=== PATIENT | female | born 1955 | race Caucasian/White ===

== ENCOUNTER 2017-02-24 20:42 | Emergency (ER) | payer OTHER ==
[~2017-02-24] VITALS: Ht 170.2 cm; Wt 74.1 kg
[~2017-02-24 20:42] MED LIST: HYDR12.54 PO; METO25TA6 PO
[2017-02-24 21:08] LABS: BASOPHILS # (AUTO) 0.04 K/uL (0.00-0.20); BASOPHILS % (AUTO) 0.5 % (0.0-2.0); EOSINOPHILS # (AUTO) 0.14 K/uL (0.00-0.70); EOSINOPHILS % (AUTO) 1.75 % (1.0-6.0); HEMATOCRIT 48.3 % (36-46); HEMOGLOBIN 16.2 g/dL (12.0-16.0); LYMPHOCYTES # (AUTO) 2.2 K/uL (1.0-4.8); LYMPHOCYTES % (AUTO) 28.6 % (22.0-44.0); MEAN CORPUSCULAR HEMOGLOBIN 31.8 pg (26.0-34.0); MEAN CORPUSCULAR HGB CONC 33.5 G/dL (31.0-37.0); MEAN CORPUSCULAR VOLUME 95 fL (80-100); MONOCYTES # (AUTO) 0.6 K/uL (0.1-1.0); MONOCYTES % (AUTO) 7.4 % (2.0-9.0); NEUTROPHILS # (AUTO) 4.8 K/uL (1.8-7.7); NEUTROPHILS % (AUTO) 61.7 % (40.0-70.0); PLATELET COUNT (AUTO) 358 K/uL (150-450); RED BLOOD CELL COUNT(AUTO) 5.09 MIL/uL (4.00-5.20)
[2017-02-24 21:21] LABS: CREATININE 1.03 mg/dL (0.60-1.30); POTASSIUM 3.5 mmol/L (3.5-5.1)
[2017-02-24 21:22] LABS: CALCIUM, TOTAL 9.6 mg/dL (8.8-10.5)
[2017-02-24 21:29] LABS: ALBUMIN 3.9 g/dL (3.4-5.0); BILIRUBIN,TOTAL 0.3 mg/dL (0.1-1.0); TOTAL PROTEIN, SERUM 8.3 g/dL (6.4-8.2)
[2017-02-24 21:36] LABS: APPEARANCE,URINE CLEAR (CLEAR); BILIRUBIN,URINE NEGATIVE (NEGATIVE); GLUCOSE, URINE (UA) NEGATIVE (NEGATIVE); KETONES,URINE NEGATIVE (NEGATIVE); LEUKOCYTE ESTERASE ,URINE NEGATIVE (NEGATIVE); NITRATE,URINE NEGATIVE (NEGATIVE); OCCULT BLOOD,URINE NEGATIVE (NEGATIVE); PROTEIN,URINE NEGATIVE (NEGATIVE); UROBILINOGEN,URINE 0.2 mg/dL (<=1.0)
[2017-02-24 21:41] LABS: AMPHET/METH SCREEN,URINE NEGATIVE (NEGATIVE); BACTERIA,URINE None Seen /HPF (None Seen); BARBITURATE SCREEN, URINE NEGATIVE (NEGATIVE); BENZODIAZEPINES SCREEN,URINE NEGATIVE (NEGATIVE); CANNABINOID SCREEN,URINE NEGATIVE (NEGATIVE); COCAINE SCREEN,URINE NEGATIVE (NEGATIVE); METHADONE SCREEN, URINE NEGATIVE (NEGATIVE); OPIATE SCREEN,URINE NEGATIVE (NEGATIVE); RBC,URINE None Seen /HPF (0-2); SQUAMOUS EPITHELIAL CELL,UR Few /LPF (None Seen); WBC,URINE 0-2 /HPF (0-5)
[2017-02-24 21:45] LABS: PHENCYCLIDINE SCREEN,URINE NEGATIVE (NEGATIVE)
[2017-02-24] MEDS ORDERED: SODIUM CHLORIDE 0.9% 1,000 ML IV ONE (22:30)
[2017-02-24] MEDS ORDERED: ONDANSETRON HCL 4 MG/2 ML VIAL IVP ONE (22:30)
[2017-02-24] MEDS ORDERED: ChlordiazePOXIDE HCL 25 MG CAPSULE PO ONE (23:15)
[2017-02-24] MEDS ORDERED: PANTOPRAZOLE SODIUM 40 MG DR TABLET PO ONE (23:15)
[2017-02-24 23:25] VITALS: BP 149/98
== END 2017-02-24 23:54 | disposition home or self-care (01) ==
LOC: EMS 20:43
DX: R10.13 Epigastric pain (principal); R11.2 Nausea with vomiting, unspecified; I10 Essential (primary) hypertension; F19.90 Other psychoactive substance use, unspecified, uncomplicated
CPT/HCPCS: 36415; 80053; 80307; 81001; 83690; 85025; 96361; 96374; 99284; G0480; J2405; J7030

== ENCOUNTER 2017-02-28 21:25 | Emergency (ER) | payer OTHER ==
[~2017-02-28] VITALS: Ht 170.2 cm; Wt 74.1 kg
[2017-02-28] MEDS ORDERED: METO50 PO (21:37)
[2017-02-28] MEDS ORDERED: LIB25 PO (21:37)
[2017-02-28] MEDS ORDERED: PANT40TA25 PO (21:37)
[2017-02-28 22:27] LABS: BASOPHILS # (AUTO) 0.04 K/uL (0.00-0.20); BASOPHILS % (AUTO) 0.6 % (0.0-2.0); EOSINOPHILS # (AUTO) 0.23 K/uL (0.00-0.70); EOSINOPHILS % (AUTO) 3.63 % (1.0-6.0); HEMATOCRIT 38.7 % (36-46); HEMOGLOBIN 13.2 g/dL (12.0-16.0); LYMPHOCYTES # (AUTO) 1.4 K/uL (1.0-4.8); LYMPHOCYTES % (AUTO) 21.9 % (22.0-44.0); MEAN CORPUSCULAR HEMOGLOBIN 32.5 pg (26.0-34.0); MEAN CORPUSCULAR HGB CONC 34.2 G/dL (31.0-37.0); MEAN CORPUSCULAR VOLUME 95 fL (80-100); MONOCYTES # (AUTO) 0.5 K/uL (0.1-1.0); MONOCYTES % (AUTO) 7.3 % (2.0-9.0); NEUTROPHILS # (AUTO) 4.2 K/uL (1.8-7.7); NEUTROPHILS % (AUTO) 66.6 % (40.0-70.0); PLATELET COUNT (AUTO) 254 K/uL (150-450); RED BLOOD CELL COUNT(AUTO) 4.07 MIL/uL (4.00-5.20); RED CELL DISTRIBUTION WIDTH 15.4 % (11.5-14.5)
[2017-02-28 22:34] LABS: ANION GAP 7 mmol/L (8-16); CALCIUM, TOTAL 8.3 mg/dL (8.8-10.5); CARBON DIOXIDE 28 mmol/L (22-29); CHLORIDE 109 mmol/L (98-107); CREATININE 1.17 mg/dL (0.60-1.30); GLOMERULAR FILTR. RATE CALC 47 mL/min (>60); GLUCOSE,RANDOM 112 mg/dL (70-110); POTASSIUM 3.9 mmol/L (3.5-5.1); SODIUM SERUM 144 mmol/L (136-145); UREA NITROGEN, BLOOD 19 mg/dL (7-18)
[2017-02-28 22:40] LABS: ALANINE AMINOTRANSFERASE 29 U/L (12-78); ALBUMIN 3.2 g/dL (3.4-5.0); ALKALINE PHOSPHATASE 60 U/L (46-116); ASPARTATE AMINOTRANSFERASE 20 U/L (15-37); BILIRUBIN,TOTAL 0.2 mg/dL (0.1-1.0); TOTAL PROTEIN, SERUM 6.7 g/dL (6.4-8.2)
[2017-02-28] MEDS ORDERED: LORazepam 2 MG TABLET PO ONE (22:45)
[2017-02-28] MEDS ORDERED: HALOPERIDOL 5 MG TABLET PO ONE (22:45)
[2017-02-28] MEDS ORDERED: DiphenhydrAMINE HCL 25 MG CAPSULE PO ONE (22:45)
[2017-02-28 22:56] VITALS: BP 150/80
[2017-02-28 23:16] LABS: AMPHET/METH SCREEN,URINE NEGATIVE (NEGATIVE); BARBITURATE SCREEN, URINE NEGATIVE (NEGATIVE); BENZODIAZEPINES SCREEN,URINE POSITIVE (NEGATIVE); CANNABINOID SCREEN,URINE NEGATIVE (NEGATIVE); COCAINE SCREEN,URINE NEGATIVE (NEGATIVE); METHADONE SCREEN, URINE NEGATIVE (NEGATIVE); OPIATE SCREEN,URINE NEGATIVE (NEGATIVE); PHENCYCLIDINE SCREEN,URINE NEGATIVE (NEGATIVE)
[2017-03-01 04:24] LABS: BILIRUBIN,URINE NEGATIVE (NEGATIVE); GLUCOSE, URINE (UA) NEGATIVE (NEGATIVE); KETONES,URINE NEGATIVE (NEGATIVE); LEUKOCYTE ESTERASE ,URINE NEGATIVE (NEGATIVE); NITRATE,URINE NEGATIVE (NEGATIVE); OCCULT BLOOD,URINE NEGATIVE (NEGATIVE); PROTEIN,URINE NEGATIVE (NEGATIVE); UROBILINOGEN,URINE 0.2 mg/dL (<=1.0)
[2017-03-01 04:26] LABS: APPEARANCE,URINE HAZY (CLEAR)
[2017-03-01 04:36] LABS: CHOL/HDL RATIO 2.8 (3.9-5.7); CHOLESTEROL 174 mg/dL (131-200); HDL CHOLESTEROL 62 mg/dL (40-60); LDL CHOL (CALC.) 85 mg/dL (0-130); THYROID STIMULATING HORMONE 1.04 uIU/mL (0.36-3.74); TRIGLYCERIDES 134 mg/dL (15-150)
== END 2017-02-28 23:47 | disposition home or self-care (01) ==
LOC: EMS 21:27
DX: F41.9 Anxiety disorder, unspecified (principal); F32.9 Major depressive disorder, single episode, unspecified; K21.9 Gastro-esophageal reflux disease without esophagitis; I10 Essential (primary) hypertension; F19.90 Other psychoactive substance use, unspecified, uncomplicated
CPT/HCPCS: 36415; 80053; 80061; 80307; 81003; 84443; 85025; 99284; G0480

== ENCOUNTER 2017-03-01 01:57 | Inpatient (IN) | payer MEDICAID, OTHER ==
[2017-03-01] VITALS (9 sets, daily range): BP systolic 130–158; BP diastolic 76–97
[~2017-03-01] VITALS: Ht 154.9 cm; Wt 70.8 kg
[~2017-03-01 01:57] MED LIST changes: +LIB25 PO; -METO25TA6 PO; +METO50 PO; +PANT40TA25 PO
[2017-03-01] MEDS ORDERED: OLANZapine 5 MG RAPDIS TABLET PO PRN (04:00)
[2017-03-01] MEDS ORDERED: GuaiFENesin/D-METHORPHAN [SUGAR-FREE] 200-20MG/10 ML SYRUP UDCUP PO PRN (04:00)
[2017-03-01] MEDS ORDERED: LOPERAMIDE HCL 2 MG CAPSULE PO PRN (04:00)
[2017-03-01] MEDS ORDERED: ZOLPIDEM TARTRATE 10 MG TABLET PO PRN (04:00)
[2017-03-01] MEDS ORDERED: LORazepam 2 MG TABLET PO PRN (04:00)
[2017-03-01] MEDS ORDERED: CYANOCOBALAMIN 1,000 MCG/ML VIAL IM ONE (04:00)
[2017-03-01] MEDS ORDERED: HydrOXYzine PAMOATE 50 MG CAPSULE PO PRN (04:00)
[2017-03-01] MEDS ORDERED: INFLUENZA VIRUS VACCINE QVS 2017-18 (3YR+)/PF 60 MCG/0.5 ML SYRINGE IM ONE (06:00)
[2017-03-01] MEDS: THIAMINE HCL 100 MG TABLET PO SCH ×2 (09:24→16:53)
[2017-03-01] MEDS: FOLIC ACID 1 MG TABLET PO SCH (09:24)
[2017-03-01] MEDS: MULTIVITAMINS WITH MINERALS, THERAPEUTIC TABLET PO SCH (09:25)
[2017-03-01] MEDS: METOPROLOL TARTRATE 50 MG TABLET PO SCH (20:43)
[2017-03-01] MEDS: HYDROCHLOROTHIAZIDE 25 MG TABLET PO SCH (20:44)
[2017-03-02 01:00] VITALS: BP 142/76
[2017-03-02 05:00] VITALS: BP 139/69
[2017-03-02] MEDS ORDERED: LORazepam 2 MG TABLET PO PRN (07:00)
[2017-03-02 09:00] VITALS: BP 140/80
[2017-03-02] MEDS ORDERED: LORazepam 2 MG TABLET PO SCH (09:00)
[2017-03-02] MEDS: MULTIVITAMINS WITH MINERALS, THERAPEUTIC TABLET PO SCH (09:02)
[2017-03-02] MEDS: THIAMINE HCL 100 MG TABLET PO SCH ×2 (09:02→16:32)
[2017-03-02] MEDS: PANTOPRAZOLE SODIUM 40 MG DR TABLET PO SCH ×2 (09:02→16:32)
[2017-03-02] MEDS: HYDROCHLOROTHIAZIDE 25 MG TABLET PO SCH (09:02)
[2017-03-02] MEDS: METOPROLOL TARTRATE 50 MG TABLET PO SCH (09:03)
[2017-03-02] MEDS: FOLIC ACID 1 MG TABLET PO SCH (09:03)
[2017-03-02] MEDS ORDERED: DIAZEPAM 10 MG TABLET PO PRN (10:15)
[2017-03-02] MEDS ORDERED: HYDR25TA PO (13:06)
[2017-03-02] MEDS ORDERED: ACETAMINOPHEN 325 MG TABLET PO PRN (17:30)
[2017-03-02] MEDS ORDERED: IBUPROFEN 600 MG TABLET PO PRN (17:30)
[2017-03-02] MEDS ORDERED: CloNIDine HCL 0.1 MG TABLET PO PRN (18:00)
[2017-03-02 19:48] VITALS: BP 141/75
[2017-03-03 03:19] VITALS: BP 142/86
[2017-03-03] MEDS ORDERED: DIAZEPAM 10 MG TABLET PO PRN (07:00)
[2017-03-03 08:00] VITALS: BP 138/94
[2017-03-03 08:33] LABS: ALBUMIN 3.6 g/dL (3.4-5.0); BILIRUBIN,TOTAL 0.5 mg/dL (0.1-1.0); CALCIUM, TOTAL 9.2 mg/dL (8.8-10.5); CREATININE 0.98 mg/dL (0.60-1.30); TOTAL PROTEIN, SERUM 7.4 g/dL (6.4-8.2)
[2017-03-03] MEDS ORDERED: NALTREXONE HCL 50 MG TABLET PO SCH (09:00)
[2017-03-03] MEDS ORDERED: PARoxetine HCL 10 MG TABLET PO SCH (09:00)
[2017-03-03] MEDS ORDERED: PARoxetine HCL 20 MG TABLET PO SCH (09:00)
[2017-03-03] MEDS: FOLIC ACID 1 MG TABLET PO SCH (09:30)
[2017-03-03] MEDS: PANTOPRAZOLE SODIUM 40 MG DR TABLET PO SCH (09:30)
[2017-03-03] MEDS: THIAMINE HCL 100 MG TABLET PO SCH (09:30)
[2017-03-03] MEDS: METOPROLOL TARTRATE 50 MG TABLET PO SCH (09:30)
[2017-03-03] MEDS: MULTIVITAMINS WITH MINERALS, THERAPEUTIC TABLET PO SCH (09:30)
[2017-03-03] MEDS: HYDROCHLOROTHIAZIDE 25 MG TABLET PO SCH (09:31)
[2017-03-03] MEDS: DIAZEPAM 10 MG TABLET PO SCH ×2 (09:31→12:27)
[2017-03-03 11:34] VITALS: BP 138/94
[2017-03-03 11:37] VITALS: BP 138/94
[2017-03-03 12:00] VITALS: BP 138/83
[2017-03-03] MEDS ORDERED: PARO10TA89 PO (13:41)
[2017-03-04] MEDS ORDERED: LORazepam 1 MG TABLET PO PRN (07:00)
[2017-03-04] MEDS ORDERED: LORazepam 1 MG TABLET PO SCH (09:00)
[2017-03-05] MEDS ORDERED: LORazepam 1 MG TABLET PO PRN (07:00)
[2017-03-05] MEDS ORDERED: DIAZEPAM 5 MG TABLET PO PRN (07:00)
[2017-03-05] MEDS ORDERED: DIAZEPAM 5 MG TABLET PO SCH (09:00)
[2017-03-06] MEDS ORDERED: DIAZEPAM 5 MG TABLET PO PRN (07:00)
== END 2017-03-03 14:00 | disposition home or self-care (01) | DRG 754 ==
LOC: EMS 01:58 → 3EI 04:33
PROVIDERS: ADMIT Psychiatry & Neurology Psychiatry; ATTEND Psychiatry & Neurology Psychiatry
DX: F32.9 Major depressive disorder, single episode, unspecified (principal); R45.851 Suicidal ideations; I10 Essential (primary) hypertension; F10.20 Alcohol dependence, uncomplicated; K21.9 Gastro-esophageal reflux disease without esophagitis; F15.90 Other stimulant use, unspecified, uncomplicated; R06.09 Other forms of dyspnea; S92.901A Unspecified fracture of right foot, initial encounter for closed fracture; W01.0XXA Fall on same level from slipping, tripping and stumbling without subsequent striking against object, initial encounter; Y93.89 Activity, other specified; Y92.89 Other specified places as the place of occurrence of the external cause; Y99.8 Other external cause status; Z28.21 Immunization not carried out because of patient refusal
CPT/HCPCS: 93306; 99285; J3420

== ENCOUNTER 2017-05-12 23:06 | Inpatient (IN) | payer MEDICAID, OTHER ==
[~2017-05-12] VITALS: Ht 170.2 cm; Wt 76.3 kg
[~2017-05-12 23:06] MED LIST changes: -HYDR12.54 PO; +HYDR25TA PO; -LIB25 PO; +PARO10TA89 PO
[2017-05-12 23:40] LABS: BASOPHILS % (AUTO) 0.7 % (0.0-2.0); EOSINOPHILS % (AUTO) 2.4 % (1.0-6.0); HEMOGLOBIN 13.2 g/dL (12.0-16.0); LYMPHOCYTES # (AUTO) 0.9 K/uL (1.0-4.8); LYMPHOCYTES % (AUTO) 14.6 % (22.0-44.0); MEAN CORPUSCULAR HEMOGLOBIN 32.4 pg (26.0-34.0); MEAN CORPUSCULAR HGB CONC 35.8 G/dL (31.0-37.0); MEAN CORPUSCULAR VOLUME 91 fL (80-100); MONOCYTES # (AUTO) 0.7 K/uL (0.1-1.0); MONOCYTES % (AUTO) 10.9 % (2.0-9.0); NEUTROPHILS # (AUTO) 4.4 K/uL (1.8-7.7); NEUTROPHILS % (AUTO) 71.4 % (40.0-70.0); PLATELET COUNT (AUTO) 246 K/uL (150-450); RED BLOOD CELL COUNT(AUTO) 4.09 MIL/uL (4.00-5.20); RED CELL DISTRIBUTION WIDTH 13.5 % (11.5-14.5)
[2017-05-12 23:51] LABS: ANION GAP 6 mmol/L (8-16); CALCIUM, TOTAL 8.6 mg/dL (8.8-10.5); CARBON DIOXIDE 32 mmol/L (22-29); CHLORIDE 104 mmol/L (98-107); CREATININE 0.96 mg/dL (0.60-1.30); GLOMERULAR FILTR. RATE CALC 59 mL/min (>60); GLUCOSE,RANDOM 144 mg/dL (70-110); POTASSIUM 3.3 mmol/L (3.5-5.1); SODIUM SERUM 142 mmol/L (136-145); UREA NITROGEN, BLOOD 13 mg/dL (7-18)
[2017-05-12 23:56] LABS: PROTHROMBIN TIME 10.1 SEC (9.4-11.6)
[2017-05-13 00:15] LABS: ALANINE AMINOTRANSFERASE 23 U/L (12-78); ALKALINE PHOSPHATASE 65 U/L (46-116); ASPARTATE AMINOTRANSFERASE 28 U/L (15-37); BILIRUBIN,TOTAL 0.2 mg/dL (0.1-1.0); CREATINE KINASE MB 3.6 ng/mL (0-5); CREATINE KINASE, TOTAL 117 U/L (26-192); TOTAL PROTEIN, SERUM 6.4 g/dL (6.4-8.2)
[2017-05-13 00:25] LABS: B-TYPE NATRIURETIC PEPTIDE 156 pg/mL (0-100)
[2017-05-13 02:11] LABS: APPEARANCE,URINE CLEAR (CLEAR); BILIRUBIN,URINE NEGATIVE (NEGATIVE); GLUCOSE, URINE (UA) NEGATIVE (NEGATIVE); KETONES,URINE NEGATIVE (NEGATIVE); LEUKOCYTE ESTERASE ,URINE TRACE (NEGATIVE); NITRATE,URINE NEGATIVE (NEGATIVE); OCCULT BLOOD,URINE NEGATIVE (NEGATIVE); PH,URINE 8.5 (5.0-8.0); PROTEIN,URINE NEGATIVE (NEGATIVE)
[2017-05-13 02:15] LABS: AMPHET/METH SCREEN,URINE NEGATIVE (NEGATIVE); BARBITURATE SCREEN, URINE NEGATIVE (NEGATIVE); BENZODIAZEPINES SCREEN,URINE NEGATIVE (NEGATIVE); CANNABINOID SCREEN,URINE NEGATIVE (NEGATIVE); COCAINE SCREEN,URINE NEGATIVE (NEGATIVE); METHADONE SCREEN, URINE NEGATIVE (NEGATIVE); OPIATE SCREEN,URINE NEGATIVE (NEGATIVE)
[2017-05-13 02:17] LABS: PHENCYCLIDINE SCREEN,URINE NEGATIVE (NEGATIVE)
[2017-05-13] MEDS ORDERED: PB/HYOSCY/ATR/SCOP/LIDO/MAALOX 55 ML BOTTLE PO ONE (02:30)
[2017-05-13] MEDS ORDERED: ASPIRIN 81 MG CHEWABLE TABLET PO ONE (02:30)
[2017-05-13] MEDS ORDERED: NITROGLYCERIN 2% (1 GM=INCH) PACKET TP ONE (02:30)
[2017-05-13 02:37] LABS: BACTERIA,URINE Rare /HPF (None Seen); RBC,URINE 0-2 /HPF (0-2); SQUAMOUS EPITHELIAL CELL,UR Rare /LPF (None Seen)
[2017-05-13] MEDS ORDERED: ONDANSETRON HCL 4 MG/2 ML VIAL IVP PRN (04:00)
[2017-05-13] MEDS ORDERED: ACETAMINOPHEN 325 MG TABLET PO PRN (04:00)
[2017-05-13] MEDS ORDERED: MORPHINE SULFATE 4 MG/ML SYRINGE IVP ONE (04:00)
[2017-05-13] MEDS ORDERED: 0.9% SODIUM CHLORIDE 10 ML SYRINGE IVP PRN (04:00)
[2017-05-13 08:31] VITALS: BP 124/84
[2017-05-13] MEDS ORDERED: POTASSIUM CHLORIDE 20 MEQ ER TABLET PO PRN ×2 (09:00→13:30)
[2017-05-13] MEDS ORDERED: POTASSIUM CHL 10 MEQ/WATER 50 ML IV PRN ×2 (09:00→13:30)
[2017-05-13] MEDS ORDERED: PNEUMOCOCCAL VACCINE POLYVALENT 0.5 ML VIAL [PPSV23] IM ONE (11:00)
[2017-05-13 11:39] VITALS: BP 106/66
[2017-05-13] MEDS ORDERED: ATORVASTATIN CALCIUM 20 MG TABLET PO SCH (13:30)
[2017-05-13 15:33] VITALS: BP 122/78
[2017-05-13 20:24] VITALS: BP_SYST 127; BP_SYST 155; BP_DIAS 78; BP_DIAS 83
[2017-05-13] MEDS: ZOLPIDEM TARTRATE 5 MG TABLET PO PRN (21:55)
[2017-05-13] MEDS ORDERED: SODIUM CHLORIDE 0.9% 1,000 ML IV ONE (22:00)
[2017-05-14] VITALS (9 sets, daily range): BP systolic 125–163; BP diastolic 72–99
[2017-05-14] MEDS: MORPHINE SULFATE 2 MG/ML SYRINGE IVP PRN ×2 (00:08→06:47)
[2017-05-14] MEDS: ZOLPIDEM TARTRATE 5 MG TABLET PO PRN (03:30)
[2017-05-14] MEDS ORDERED: LIDOCAINE HCL/PF 1% 30 ML VIAL ONE (08:43)
[2017-05-14] MEDS ORDERED: HEPARIN SODIUM 1000 UNITS/NS 1,000 ML ONE (08:43)
[2017-05-14] MEDS ORDERED: IOHEXOL 300 MG/ML 150 ML VIAL ONE (08:43)
[2017-05-14] MEDS ORDERED: SODIUM BICARBONATE 50 MEQ/50 ML VIAL ONE (08:43)
[2017-05-14] MEDS ORDERED: HEPARIN SODIUM,PORCINE 1,000 UNITS/ML 10 ML VIAL ONE (08:44)
[2017-05-14] MEDS ORDERED: ASPIRIN 81 MG CHEWABLE TABLET PO SCH (09:00)
[2017-05-14] MEDS ORDERED: MIDAZOLAM HCL 2 MG/2 ML VIAL ONE (09:40)
[2017-05-14] MEDS ORDERED: FentaNYL CITRATE-PF 100 MCG/2 ML VIAL ONE (09:40)
[2017-05-14] MEDS ORDERED: HEPARIN SODIUM 2,000 UNITS in HEPARIN SODIUM 1000 UNITS/NS 1,000 ML IARTER ONE (09:53)
[2017-05-14] MEDS ORDERED: IOHEXOL 300 MG/ML 150 ML VIAL IARTER ONE (10:00)
[2017-05-14] MEDS ORDERED: LIDOCAINE 1% 30 ML/SOD BICARB 8.4% 4 ML SQ ONE (10:00)
[2017-05-14] MEDS ORDERED: IOHEXOL 300 MG/ML 50 ML VIAL ONE (10:05)
[2017-05-14] MEDS ORDERED: ONDANSETRON HCL 4 MG/2 ML VIAL ONE (10:13)
[2017-05-14] MEDS ORDERED: FentaNYL CITRATE-PF 100 MCG/2 ML VIAL IVP ONE (10:15)
[2017-05-14] MEDS ORDERED: ONDANSETRON HCL 4 MG/2 ML VIAL IVP ONE ×2 (10:15→10:30)
[2017-05-14] MEDS ORDERED: MIDAZOLAM HCL 2 MG/2 ML VIAL IVP ONE ×2 (10:15)
[2017-05-14] MEDS ORDERED: IOHEXOL 240 MG/ML 50 ML VIAL IARTER ONE (10:15)
[2017-05-14] MEDS ORDERED: PARoxetine HCL 10 MG TABLET PO SCH (11:30)
[2017-05-14] MEDS: METOPROLOL TARTRATE 25 MG TABLET PO SCH ×2 (11:41→20:50)
[2017-05-14] MEDS: ACETAMINOPHEN 325 MG TABLET PO PRN ×2 (12:45→20:50)
[2017-05-14] MEDS ORDERED: ZOLPIDEM TARTRATE 10 MG TABLET PO PRN (14:00)
[2017-05-15] MEDS ORDERED: ATORVASTATIN CALCIUM 40 MG TABLET PO SCH (09:00)
[2017-05-15] MEDS ORDERED: PARoxetine HCL 10 MG TABLET PO SCH (09:00)
== END 2017-05-14 21:35 | disposition short-term general hospital (02) | DRG 190 ==
LOC: EMS 23:08 → 5S 05-13 04:07
PROVIDERS: ADMIT Internal Medicine; ATTEND Internal Medicine
PROC: 4A023N7 Measurement of Cardiac Sampling and Pressure, Left Heart, Percutaneous Approach (ICD-10-PCS; principal; 2017-05-14)
PROC: B2111ZZ Fluoroscopy of Multiple Coronary Arteries using Low Osmolar Contrast (ICD-10-PCS; 2017-05-14)
PROC: B2151ZZ Fluoroscopy of Left Heart using Low Osmolar Contrast (ICD-10-PCS; 2017-05-14)
DX: I21.4 Non-ST elevation (NSTEMI) myocardial infarction (principal); F33.2 Major depressive disorder, recurrent severe without psychotic features; I25.119 Atherosclerotic heart disease of native coronary artery with unspecified angina pectoris; I10 Essential (primary) hypertension; F10.20 Alcohol dependence, uncomplicated; K21.9 Gastro-esophageal reflux disease without esophagitis; F15.10 Other stimulant abuse, uncomplicated; F41.9 Anxiety disorder, unspecified; Z79.899 Other long term (current) drug therapy; Z79.82 Long term (current) use of aspirin
CPT/HCPCS: 84132; 93005; 93306; 96374; 99285; J1644; J2250; J2270; J2405; J3010; J3490; J7030; Q9967

== ENCOUNTER 2017-07-18 18:46 | Emergency (ER) | payer OTHER ==
[~2017-07-18] VITALS: Ht 160 cm; Wt 67.7 kg
[2017-07-18 19:56] LABS: EOSINOPHILS % (AUTO) 2.6 % (1.0-6.0); HEMATOCRIT 36.8 % (36-46); HEMOGLOBIN 12.5 g/dL (12.0-16.0); LYMPHOCYTES # (AUTO) 1.7 K/uL (1.0-4.8); LYMPHOCYTES % (AUTO) 19.1 % (22.0-44.0); MEAN CORPUSCULAR HEMOGLOBIN 28.6 pg (26.0-34.0); MEAN CORPUSCULAR HGB CONC 33.9 G/dL (31.0-37.0); MEAN CORPUSCULAR VOLUME 84 fL (80-100); MONOCYTES # (AUTO) 0.9 K/uL (0.1-1.0); MONOCYTES % (AUTO) 9.9 % (2.0-9.0); NEUTROPHILS # (AUTO) 6.1 K/uL (1.8-7.7); NEUTROPHILS % (AUTO) 67.4 % (40.0-70.0); PLATELET COUNT (AUTO) 350 K/uL (150-450); RED BLOOD CELL COUNT(AUTO) 4.36 MIL/uL (4.00-5.20); RED CELL DISTRIBUTION WIDTH 14.7 % (11.5-14.5)
[2017-07-18 20:42] LABS: CALCIUM, TOTAL 8.8 mg/dL (8.8-10.5); CREATININE 0.97 mg/dL (0.60-1.30); POTASSIUM 3.7 mmol/L (3.5-5.1)
[2017-07-18 20:49] LABS: ALBUMIN 3.6 g/dL (3.4-5.0); BILIRUBIN,TOTAL 0.4 mg/dL (0.1-1.0); TOTAL PROTEIN, SERUM 8.3 g/dL (6.4-8.2)
[2017-07-18 20:53] VITALS: BP 138/63
== END 2017-07-18 21:15 | disposition home or self-care (01) ==
LOC: EMS 18:47
DX: L03.313 Cellulitis of chest wall (principal); I10 Essential (primary) hypertension; I25.10 Atherosclerotic heart disease of native coronary artery without angina pectoris; K21.9 Gastro-esophageal reflux disease without esophagitis; Z95.1 Presence of aortocoronary bypass graft
CPT/HCPCS: 93005; 99285

== ENCOUNTER 2017-11-12 22:24 | Emergency (ER) | payer OTHER ==
[~2017-11-12] VITALS: Ht 170.2 cm; Wt 69.5 kg
[~2017-11-12 22:24] MED LIST changes: +ASPI81 PO; +ATOR10TA84 PO; -HYDR25TA PO; +METO25XL PO; -METO50 PO; +MV-M1TAB2 PO
[2017-11-12] MEDS ORDERED: CEPH500 PO (22:36)
[2017-11-12] MEDS ORDERED: LORazepam 1 MG TABLET PO ONE (23:00)
[2017-11-12] MEDS ORDERED: DiphenhydrAMINE HCL 25 MG CAPSULE PO ONE (23:00)
[2017-11-12 23:11] LABS: BASOPHILS % (AUTO) 0.9 % (0.0-2.0); HEMOGLOBIN 10.9 g/dL (12.0-16.0); LYMPHOCYTES # (AUTO) 1.5 K/uL (1.0-4.8); LYMPHOCYTES % (AUTO) 19.3 % (22.0-44.0)
[2017-11-12 23:20] LABS: EOSINOPHILS % (AUTO) 2.8 % (1.0-6.0); HEMATOCRIT 33.2 % (36-46); MEAN CORPUSCULAR HEMOGLOBIN 25.4 pg (26.0-34.0); MEAN CORPUSCULAR HGB CONC 32.7 G/dL (31.0-37.0); MEAN CORPUSCULAR VOLUME 78 fL (80-100); MONOCYTES # (AUTO) 0.7 K/uL (0.1-1.0); MONOCYTES % (AUTO) 9.2 % (2.0-9.0); NEUTROPHILS # (AUTO) 5.4 K/uL (1.8-7.7); NEUTROPHILS % (AUTO) 67.8 % (40.0-70.0); PLATELET COUNT (AUTO) 403 K/uL (150-450); RED BLOOD CELL COUNT(AUTO) 4.28 MIL/uL (4.00-5.20); RED CELL DISTRIBUTION WIDTH 16.5 % (11.5-14.5)
[2017-11-12 23:22] LABS: ANION GAP 10 mmol/L (8-16); CALCIUM, TOTAL 8.9 mg/dL (8.8-10.5); CARBON DIOXIDE 26 mmol/L (22-29); CHLORIDE 105 mmol/L (98-107); CREATININE 0.89 mg/dL (0.60-1.30); GLOMERULAR FILTR. RATE CALC > 60 mL/min (>60); GLUCOSE,RANDOM 93 mg/dL (70-110); POTASSIUM 3.4 mmol/L (3.5-5.1); SODIUM SERUM 141 mmol/L (136-145); UREA NITROGEN, BLOOD 11 mg/dL (7-18)
[2017-11-12 23:29] LABS: ALANINE AMINOTRANSFERASE 23 U/L (12-78); ALBUMIN 3.2 g/dL (3.4-5.0); ALKALINE PHOSPHATASE 92 U/L (46-116); ASPARTATE AMINOTRANSFERASE 18 U/L (15-37); BILIRUBIN,TOTAL 0.3 mg/dL (0.1-1.0); TOTAL PROTEIN, SERUM 7.4 g/dL (6.4-8.2)
[2017-11-13] MEDS ORDERED: IBUPROFEN 600 MG TABLET PO ONE
[2017-11-13] MEDS ORDERED: ACETAMINOPHEN 325 MG TABLET PO ONE
[2017-11-13 00:10] LABS: AMPHET/METH SCREEN,URINE NEGATIVE (NEGATIVE); BARBITURATE SCREEN, URINE NEGATIVE (NEGATIVE); BENZODIAZEPINES SCREEN,URINE NEGATIVE (NEGATIVE); CANNABINOID SCREEN,URINE NEGATIVE (NEGATIVE); COCAINE SCREEN,URINE NEGATIVE (NEGATIVE); METHADONE SCREEN, URINE NEGATIVE (NEGATIVE); OPIATE SCREEN,URINE NEGATIVE (NEGATIVE)
[2017-11-13 00:11] LABS: PHENCYCLIDINE SCREEN,URINE NEGATIVE (NEGATIVE)
[2017-11-13 00:17] VITALS: BP 127/78
== END 2017-11-13 00:19 | disposition home or self-care (01) ==
LOC: EMS 22:25
DX: F41.9 Anxiety disorder, unspecified (principal); F10.20 Alcohol dependence, uncomplicated; F15.90 Other stimulant use, unspecified, uncomplicated; F32.9 Major depressive disorder, single episode, unspecified; K21.9 Gastro-esophageal reflux disease without esophagitis; E78.00 Pure hypercholesterolemia, unspecified; I11.9 Hypertensive heart disease without heart failure; Z95.1 Presence of aortocoronary bypass graft; Z79.82 Long term (current) use of aspirin; Z79.899 Other long term (current) drug therapy; Y90.0 Blood alcohol level of less than 20 mg/100 ml
CPT/HCPCS: 36415; 80053; 80307; 85025; 93005; 99285; G0480

== ENCOUNTER 2017-12-27 17:55 | Inpatient (IN) | payer OTHER ==
[~2017-12-27] VITALS: Ht 170.2 cm; Wt 73.4 kg
[~2017-12-27 17:55] MED LIST changes: +CEPH500 PO
[2017-12-27] MEDS ORDERED: LORA0.5T2 PO (18:05)
[2017-12-27] MEDS ORDERED: LOSA25TA16 PO (18:05)
[2017-12-27] MEDS ORDERED: POTA25TA7 PO (18:05)
[2017-12-27] MEDS ORDERED: FURO20 PO (18:05)
[2017-12-27] MEDS ORDERED: POTA8TAB7 PO (19:09)
[2017-12-27] MEDS ORDERED: DiphenhydrAMINE HCL 50 MG/ML VIAL IVP ONE (19:15)
[2017-12-27] MEDS ORDERED: PANTOPRAZOLE SODIUM 40 MG/VIAL IVP ONE (19:15)
[2017-12-27] MEDS ORDERED: ONDANSETRON HCL 4 MG/2 ML VIAL IVP ONE (19:15)
[2017-12-27 19:27] LABS: BASOPHILS % (AUTO) 0.5 % (0.0-2.0); EOSINOPHILS % (AUTO) 1.8 % (1.0-6.0); HEMATOCRIT 32.3 % (36-46); HEMOGLOBIN 10.7 g/dL (12.0-16.0); LYMPHOCYTES % (AUTO) 13.5 % (22.0-44.0); MEAN CORPUSCULAR HEMOGLOBIN 26.1 pg (26.0-34.0); MEAN CORPUSCULAR VOLUME 79 fL (80-100); MONOCYTES # (AUTO) 0.6 K/uL (0.1-1.0); MONOCYTES % (AUTO) 8.5 % (2.0-9.0); NEUTROPHILS # (AUTO) 5.6 K/uL (1.8-7.7); NEUTROPHILS % (AUTO) 75.7 % (40.0-70.0); PLATELET COUNT (AUTO) 320 K/uL (150-450); RED BLOOD CELL COUNT(AUTO) 4.09 MIL/uL (4.00-5.20); RED CELL DISTRIBUTION WIDTH 18.1 % (11.5-14.5)
[2017-12-27 19:32] LABS: ANION GAP 11 mmol/L (8-16); CALCIUM, TOTAL 9.2 mg/dL (8.8-10.5); CARBON DIOXIDE 28 mmol/L (22-29); CHLORIDE 101 mmol/L (98-107); CREATININE 0.83 mg/dL (0.60-1.30); GLOMERULAR FILTR. RATE CALC > 60 mL/min (>60); GLUCOSE,RANDOM 105 mg/dL (70-110); POTASSIUM 3.3 mmol/L (3.5-5.1); SODIUM SERUM 140 mmol/L (136-145); UREA NITROGEN, BLOOD 9 mg/dL (7-18)
[2017-12-27 19:38] LABS: ALANINE AMINOTRANSFERASE 25 U/L (12-78); ALBUMIN 3.5 g/dL (3.4-5.0); ALKALINE PHOSPHATASE 82 U/L (46-116); ASPARTATE AMINOTRANSFERASE 24 U/L (15-37); BILIRUBIN,TOTAL 0.7 mg/dL (0.1-1.0); LIPASE 175 U/L (73-393)
[2017-12-27 20:16] LABS: AMPHET/METH SCREEN,URINE NEGATIVE (NEGATIVE); BARBITURATE SCREEN, URINE NEGATIVE (NEGATIVE); BENZODIAZEPINES SCREEN,URINE POSITIVE (NEGATIVE); CANNABINOID SCREEN,URINE POSITIVE (NEGATIVE); COCAINE SCREEN,URINE NEGATIVE (NEGATIVE); METHADONE SCREEN, URINE NEGATIVE (NEGATIVE); OPIATE SCREEN,URINE POSITIVE (NEGATIVE)
[2017-12-27 20:28] LABS: PHENCYCLIDINE SCREEN,URINE NEGATIVE (NEGATIVE)
[2017-12-27] MEDS ORDERED: POTASSIUM CHLORIDE 20 MEQ ER TABLET PO ONE (20:45)
[2017-12-27] MEDS ORDERED: LORazepam 1 MG TABLET PO ONE (20:45)
[2017-12-27 21:19] LABS: CREATINE KINASE, TOTAL ONLY 95 U/L (26-192)
[2017-12-27] MEDS ORDERED: ALBUTEROL SULFATE 2.5 MG/0.5 ML NEB SOLUTION NEB PRN (22:15)
[2017-12-27] MEDS ORDERED: IPRATROPIUM BROMIDE 0.5 MG/2.5 ML NEB SOLUTION NEB PRN (22:15)
[2017-12-27] MEDS ORDERED: BISACODYL 10 MG RECTAL RECTAL SUPPOSITORY PR PRN (22:15)
[2017-12-27] MEDS ORDERED: OxyCODONE HCL/ACETAMINOPHEN 5-325 MG TABLET PO PRN (22:15)
[2017-12-27] MEDS ORDERED: MORPHINE SULFATE 4 MG/ML SYRINGE IVP PRN (22:15)
[2017-12-27] MEDS ORDERED: MAGNESIUM HYDROXIDE SUSPENSION 30 ML UDCUP PO PRN (22:15)
[2017-12-27] MEDS: ZOLPIDEM TARTRATE 5 MG TABLET PO PRN (22:35)
[2017-12-27] MEDS: ACETAMINOPHEN 325 MG TABLET PO PRN (22:35)
[2017-12-27 22:45] VITALS: BP 133/72
[2017-12-28] MEDS: LORazepam 2 MG/ML VIAL IVP PRN ×2 (01:56→17:47)
[2017-12-28 04:03] VITALS: BP 111/58
[2017-12-28] MEDS: ACETAMINOPHEN 325 MG TABLET PO PRN ×3 (06:35→21:18)
[2017-12-28 06:42] LABS: ALANINE AMINOTRANSFERASE 28 U/L (12-78); ALBUMIN 2.9 g/dL (3.4-5.0); ALKALINE PHOSPHATASE 68 U/L (46-116); ANION GAP 8 mmol/L (8-16); ASPARTATE AMINOTRANSFERASE 16 U/L (15-37); BILIRUBIN,TOTAL 0.5 mg/dL (0.1-1.0); CALCIUM, TOTAL 8.6 mg/dL (8.8-10.5); CARBON DIOXIDE 27 mmol/L (22-29); CHLORIDE 106 mmol/L (98-107); CREATININE 0.78 mg/dL (0.60-1.30); GLOMERULAR FILTR. RATE CALC > 60 mL/min (>60); GLUCOSE,RANDOM 109 mg/dL (70-110); PHOSPHORUS 3.8 mg/dL (2.5-4.9); POTASSIUM 3.5 mmol/L (3.5-5.1); SODIUM SERUM 141 mmol/L (136-145); TOTAL PROTEIN, SERUM 6.7 g/dL (6.4-8.2); UREA NITROGEN, BLOOD 9 mg/dL (7-18)
[2017-12-28 07:32] VITALS: BP 138/75
[2017-12-28] MEDS: PARoxetine HCL 10 MG TABLET PO SCH (08:09)
[2017-12-28] MEDS: LORazepam 0.5 MG TABLET PO SCH (08:09)
[2017-12-28] MEDS: POTASSIUM CHLORIDE 8 MEQ ER TABLET PO SCH (08:09)
[2017-12-28] MEDS: METOPROLOL SUCCINATE 25 MG ER TABLET PO SCH (08:09)
[2017-12-28] MEDS: FUROSEMIDE 20 MG TABLET PO SCH (08:09)
[2017-12-28] MEDS: CLOPIDOGREL BISULFATE 75 MG TABLET PO SCH (08:09)
[2017-12-28] MEDS: HEPARIN SODIUM,PORCINE 5,000 UNITS/ML VIAL SQ SCH ×2 (08:09→21:12)
[2017-12-28] MEDS: ASPIRIN 81 MG CHEWABLE TABLET PO SCH (08:10)
[2017-12-28] MEDS ORDERED: LOSARTAN POTASSIUM 25 MG TABLET PO SCH (09:00)
[2017-12-28 11:14] VITALS: BP 126/68
[2017-12-28] MEDS: ONDANSETRON HCL 4 MG/2 ML VIAL IVP PRN (15:42)
[2017-12-28 15:48] VITALS: BP 118/70
[2017-12-28 19:45] VITALS: BP 110/68
[2017-12-28] MEDS ORDERED: ATORVASTATIN CALCIUM 10 MG TABLET PO SCH (21:00)
[2017-12-28] MEDS: ZOLPIDEM TARTRATE 5 MG TABLET PO PRN (21:12)
[2017-12-28] MEDS: ATORVASTATIN CALCIUM 10 MG TABLET PO SCH (21:13)
[2017-12-29] VITALS (7 sets, daily range): BP systolic 110–147; BP diastolic 58–79
[2017-12-29 08:04] LABS: BASOPHILS % (AUTO) 0.7 % (0.0-2.0); EOSINOPHILS % (AUTO) 7.5 % (1.0-6.0); HEMATOCRIT 31.5 % (36-46); HEMOGLOBIN 10.4 g/dL (12.0-16.0); LYMPHOCYTES # (AUTO) 1.2 K/uL (1.0-4.8); LYMPHOCYTES % (AUTO) 19.1 % (22.0-44.0); MEAN CORPUSCULAR HEMOGLOBIN 26.5 pg (26.0-34.0); MEAN CORPUSCULAR HGB CONC 33.2 G/dL (31.0-37.0); MEAN CORPUSCULAR VOLUME 80 fL (80-100); MONOCYTES # (AUTO) 0.6 K/uL (0.1-1.0); NEUTROPHILS # (AUTO) 3.9 K/uL (1.8-7.7); NEUTROPHILS % (AUTO) 63.7 % (40.0-70.0); PLATELET COUNT (AUTO) 336 K/uL (150-450); RED BLOOD CELL COUNT(AUTO) 3.93 MIL/uL (4.00-5.20); RED CELL DISTRIBUTION WIDTH 18.7 % (11.5-14.5)
[2017-12-29] MEDS: HEPARIN SODIUM,PORCINE 5,000 UNITS/ML VIAL SQ SCH ×2 (08:17→20:13)
[2017-12-29] MEDS: ONDANSETRON HCL 4 MG/2 ML VIAL IVP PRN ×2 (08:17→20:12)
[2017-12-29] MEDS: ASPIRIN 81 MG CHEWABLE TABLET PO SCH (08:18)
[2017-12-29] MEDS: METOPROLOL SUCCINATE 25 MG ER TABLET PO SCH (08:18)
[2017-12-29] MEDS: CLOPIDOGREL BISULFATE 75 MG TABLET PO SCH (08:18)
[2017-12-29] MEDS: LORazepam 0.5 MG TABLET PO SCH (08:18)
[2017-12-29] MEDS: PARoxetine HCL 10 MG TABLET PO SCH (08:18)
[2017-12-29] MEDS: FUROSEMIDE 20 MG TABLET PO SCH (08:18)
[2017-12-29] MEDS: POTASSIUM CHLORIDE 8 MEQ ER TABLET PO SCH (08:18)
[2017-12-29] MEDS: ACETAMINOPHEN 325 MG TABLET PO PRN (08:20)
[2017-12-29 08:34] LABS: ALANINE AMINOTRANSFERASE 19 U/L (12-78); ALBUMIN 2.9 g/dL (3.4-5.0); ALKALINE PHOSPHATASE 75 U/L (46-116); ANION GAP 6 mmol/L (8-16); ASPARTATE AMINOTRANSFERASE 15 U/L (15-37); BILIRUBIN,TOTAL 0.5 mg/dL (0.1-1.0); CALCIUM, TOTAL 8.5 mg/dL (8.8-10.5); CARBON DIOXIDE 29 mmol/L (22-29); CHLORIDE 104 mmol/L (98-107); CREATININE 0.82 mg/dL (0.60-1.30); GLOMERULAR FILTR. RATE CALC > 60 mL/min (>60); GLUCOSE,RANDOM 97 mg/dL (70-110); POTASSIUM 3.9 mmol/L (3.5-5.1); SODIUM SERUM 139 mmol/L (136-145); UREA NITROGEN, BLOOD 11 mg/dL (7-18)
[2017-12-29] MEDS: CARVEDILOL 6.25 MG TABLET PO SCH ×2 (09:00→20:12)
[2017-12-29] MEDS ORDERED: DIPHENOXYLATE/ATROP 2.5-0.025 MG TABLET PO ONE (10:15)
[2017-12-29] MEDS ORDERED: MAGNESIUM OXIDE 400 MG TABLET PO ONE (10:15)
[2017-12-29] MEDS: LOSARTAN POTASSIUM 25 MG TABLET PO SCH ×2 (10:20→20:12)
[2017-12-29] MEDS: LORazepam 2 MG/ML VIAL IVP PRN ×2 (13:51→22:00)
[2017-12-29] MEDS ORDERED: CLOP75 PO (18:59)
[2017-12-29] MEDS ORDERED: CARV6 PO (18:59)
[2017-12-29] MEDS: ATORVASTATIN CALCIUM 10 MG TABLET PO SCH (20:12)
[2017-12-29] MEDS: ZOLPIDEM TARTRATE 5 MG TABLET PO PRN (20:41)
[2017-12-29] MEDS ORDERED: ZOLPIDEM TARTRATE 10 MG TABLET PO PRN (23:30)
[2017-12-30 00:43] VITALS: BP 112/70
[2017-12-30 04:40] VITALS: BP 117/72
[2017-12-30] MEDS: LORazepam 2 MG/ML VIAL IVP PRN (06:23)
[2017-12-30 06:27] LABS: BASOPHILS % (AUTO) 0.8 % (0.0-2.0); EOSINOPHILS % (AUTO) 8.2 % (1.0-6.0); HEMATOCRIT 30.6 % (36-46); HEMOGLOBIN 10.2 g/dL (12.0-16.0); LYMPHOCYTES # (AUTO) 1.2 K/uL (1.0-4.8); LYMPHOCYTES % (AUTO) 19.5 % (22.0-44.0); MEAN CORPUSCULAR HEMOGLOBIN 26.7 pg (26.0-34.0); MEAN CORPUSCULAR HGB CONC 33.4 G/dL (31.0-37.0); MEAN CORPUSCULAR VOLUME 80 fL (80-100); MONOCYTES # (AUTO) 0.6 K/uL (0.1-1.0); MONOCYTES % (AUTO) 9.9 % (2.0-9.0); NEUTROPHILS # (AUTO) 3.8 K/uL (1.8-7.7); NEUTROPHILS % (AUTO) 61.6 % (40.0-70.0); PLATELET COUNT (AUTO) 340 K/uL (150-450); RED BLOOD CELL COUNT(AUTO) 3.82 MIL/uL (4.00-5.20); RED CELL DISTRIBUTION WIDTH 18.3 % (11.5-14.5)
[2017-12-30 06:45] LABS: BILIRUBIN,TOTAL 0.4 mg/dL (0.1-1.0); CALCIUM, TOTAL 8.6 mg/dL (8.8-10.5); CREATININE 0.96 mg/dL (0.60-1.30); MAGNESIUM 1.8 mg/dL (1.80-2.40); POTASSIUM 3.9 mmol/L (3.5-5.1); TOTAL PROTEIN, SERUM 6.9 g/dL (6.4-8.2)
[2017-12-30 07:53] VITALS: BP 128/69
[2017-12-30] MEDS: POTASSIUM CHLORIDE 8 MEQ ER TABLET PO SCH (08:59)
[2017-12-30] MEDS: CLOPIDOGREL BISULFATE 75 MG TABLET PO SCH (08:59)
[2017-12-30] MEDS: ASPIRIN 81 MG CHEWABLE TABLET PO SCH (08:59)
[2017-12-30] MEDS: LORazepam 0.5 MG TABLET PO SCH (08:59)
[2017-12-30] MEDS: FUROSEMIDE 20 MG TABLET PO SCH (08:59)
[2017-12-30] MEDS: CARVEDILOL 6.25 MG TABLET PO SCH (09:00)
[2017-12-30] MEDS: PARoxetine HCL 10 MG TABLET PO SCH (09:00)
[2017-12-30] MEDS: HEPARIN SODIUM,PORCINE 5,000 UNITS/ML VIAL SQ SCH (09:00)
[2017-12-30] MEDS: LOSARTAN POTASSIUM 25 MG TABLET PO SCH (09:18)
[2017-12-30] MEDS: ONDANSETRON HCL 4 MG/2 ML VIAL IVP PRN (09:18)
== END 2017-12-30 09:55 | disposition home or self-care (01) | DRG 251 ==
LOC: EMS 17:55 → 5S 21:34
PROVIDERS: ADMIT Internal Medicine; ATTEND Internal Medicine
DX: R10.9 Unspecified abdominal pain (principal); I50.21 Acute systolic (congestive) heart failure; K21.9 Gastro-esophageal reflux disease without esophagitis; I11.0 Hypertensive heart disease with heart failure; E78.00 Pure hypercholesterolemia, unspecified; E78.5 Hyperlipidemia, unspecified; I25.10 Atherosclerotic heart disease of native coronary artery without angina pectoris; E87.6 Hypokalemia; F10.20 Alcohol dependence, uncomplicated; I25.5 Ischemic cardiomyopathy; F13.10 Sedative, hypnotic or anxiolytic abuse, uncomplicated; G89.29 Other chronic pain; F41.8 Other specified anxiety disorders; Z82.49 Family history of ischemic heart disease and other diseases of the circulatory system; Z95.5 Presence of coronary angioplasty implant and graft; Z79.899 Other long term (current) drug therapy; Y90.9 Presence of alcohol in blood, level not specified
CPT/HCPCS: 82271; 83735; 84100; 87081; 93005; 93306; 96374; 96375; C9113; G0378; G0480; J1200; J1644; J2060; J2405

== ENCOUNTER 2019-02-17 15:24 | Emergency (ER) | payer OTHER ==
[~2019-02-17] VITALS: Ht 167.6 cm; Wt 77.3 kg
[~2019-02-17 15:24] MED LIST changes: +CARV6 PO; +CLOP75TA3 PO; +FURO20 PO; +LORA-999 PO; +LOSA25TA41 PO; -METO25XL PO; +POTA8TAB7 PO
[2019-02-17 17:35] VITALS: BP 118/77
== END 2019-02-17 17:36 | disposition home or self-care (01) ==
LOC: EMS 15:25
DX: H66.91 Otitis media, unspecified, right ear (principal); E78.00 Pure hypercholesterolemia, unspecified; I11.9 Hypertensive heart disease without heart failure; K21.9 Gastro-esophageal reflux disease without esophagitis; F41.9 Anxiety disorder, unspecified; F32.9 Major depressive disorder, single episode, unspecified; F10.20 Alcohol dependence, uncomplicated; F15.90 Other stimulant use, unspecified, uncomplicated; Z95.1 Presence of aortocoronary bypass graft; Z98.890 Other specified postprocedural states; Z79.899 Other long term (current) drug therapy; Z79.82 Long term (current) use of aspirin

== ENCOUNTER 2023-06-03 14:44 | Emergency (ER) | payer OTHER ==
[~2023-06-03] VITALS: Ht 152.4 cm; Wt 75.0 kg
[~2023-06-03 14:44] MED LIST changes: +ASPI-1450 PO; -ASPI81 PO; +ATOR10TA PO; -ATOR10TA84 PO; +CEPH-558 PO; -CEPH500 PO; -CLOP75TA3 PO; +CLOP75TA60 PO; +LOSA-381 PO; -LOSA25TA41 PO; +PANT-31 PO; -PANT40TA25 PO
[2023-06-03] MEDS ORDERED: EMPA10TA3 PO (15:06)
[2023-06-03] MEDS ORDERED: CARV12.530 PO (15:06)
[2023-06-03] MEDS ORDERED: ATOR40TA71 PO (15:06)
[2023-06-03] MEDS ORDERED: SACU1TAB7 PO (15:06)
[2023-06-03] MEDS ORDERED: CALC-959 PO (15:06)
[2023-06-03] MEDS ORDERED: FAMO20 PO (15:06)
[2023-06-03] MEDS ORDERED: 0.9% SODIUM CHLORIDE 10 ML SYRINGE IVP PRN (19:30)
[2023-06-03] MEDS: SODIUM CHLORIDE 0.9% 2,250 ML IV ONE (19:39)
[2023-06-03] MEDS ORDERED: SODIUM CHLORIDE 0.9% 0 ML ONE (19:48)
[2023-06-03] MEDS ORDERED: IOHEXOL 350 MG/ML 100 ML VIAL ONE (19:48)
[2023-06-03] MEDS: PIPERACILLIN/TAZO 3.375 GM/D5W 50 ML IV ONE (19:52)
[2023-06-03 20:19] LABS: BASOPHILS % (AUTO) 0.2 % (0.0-2.0); EOSINOPHILS % (AUTO) 4.7 % (1.0-6.0); HEMATOCRIT 37.4 % (36-46); HEMOGLOBIN 12.8 g/dL (12.0-16.0); LYMPHOCYTES # (AUTO) 0.2 K/uL (1.0-4.8); MEAN CORPUSCULAR HGB CONC 34.2 G/dL (31.0-37.0); MEAN CORPUSCULAR VOLUME 94 fL (80-100); MONOCYTES # (AUTO) 0.1 K/uL (0.1-1.0); MONOCYTES % (AUTO) 1.5 % (2.0-9.0); NEUTROPHILS # (AUTO) 8.5 K/uL (1.8-7.7); PLATELET COUNT (AUTO) 151 K/uL (150-450); RED BLOOD CELL COUNT(AUTO) 3.99 MIL/uL (4.00-5.20); RED CELL DISTRIBUTION WIDTH 15.2 % (11.5-14.5); WHITE BLOOD COUNT (AUTO) 9.3 K/uL (4.5-11.0)
[2023-06-03 20:30] LABS: NEUTROPHILS % (AUTO) 91.6 % (40.0-70.0)
[2023-06-03 20:34] LABS: INR 1.4 (0.9-1.1)
[2023-06-03 20:40] LABS: TROPONIN I-HIGH SENSITIVITY 8 ng/L (<51)
[2023-06-03 20:43] LABS: ALANINE AMINOTRANSFERASE 34 U/L (12-78); ALBUMIN 1.5 g/dL (3.4-5.0); ALKALINE PHOSPHATASE 202 U/L (46-116); ANION GAP 17 mmol/L (8-16); ASPARTATE AMINOTRANSFERASE 66 U/L (15-37); CALCIUM, TOTAL 8.4 mg/dL (8.8-10.5); CARBON DIOXIDE 16 mmol/L (22-29); CHLORIDE 97 mmol/L (98-107); CREATINE KINASE, TOTAL ONLY 55 U/L (26-192); GLOMERULAR FILTR. RATE CALC 24 mL/min (>60); GLUCOSE,RANDOM 110 mg/dL (70-110); SODIUM SERUM 130 mmol/L (136-145); TOTAL PROTEIN, SERUM 6.2 g/dL (6.4-8.2); UREA NITROGEN, BLOOD 49 mg/dL (7-18)
[2023-06-03 20:47] LABS: POTASSIUM 2.9 mmol/L (3.5-5.1)
[2023-06-03 20:54] LABS: B-TYPE NATRIURETIC PEPTIDE 428 pg/mL (0-100)
[2023-06-03] MEDS: POTASSIUM CHLORIDE 20 MEQ ER TABLET PO ONE (20:55)
[2023-06-03 20:56] LABS: LACTIC ACID 2.8 mmol/L (0.4-2.0)
[2023-06-03] MEDS: VANCOMYCIN 1GM/WATER(PEG/NADA) 200 ML IV ONE (21:52)
[2023-06-04 00:33] VITALS: BP 102/68; PULSE 88; RESP 28; TEMP 98.9
== END 2023-06-04 01:16 | disposition short-term general hospital (02) ==
LOC: EMS 14:44
DX: L03.314 Cellulitis of groin (principal); E87.6 Hypokalemia; F15.10 Other stimulant abuse, uncomplicated; R74.02 Elevation of levels of lactic acid dehydrogenase [LDH]; N28.9 Disorder of kidney and ureter, unspecified; F10.20 Alcohol dependence, uncomplicated; F41.9 Anxiety disorder, unspecified; F32.A Depression, unspecified; E78.00 Pure hypercholesterolemia, unspecified; I11.9 Hypertensive heart disease without heart failure; Z98.890 Other specified postprocedural states
CPT/HCPCS: 80053; 82550; 83605; 83880; 84484; 85025; 85610; 85730; 87040; 87205; 36415; 87077; 71045; 74176; 93005; 96365; 96367; 99291; 84145; J2543; Q9967; 51702; J7050